=== PATIENT | female | born 1990 | race African-American/Black ===

== ENCOUNTER 2018-07-16 20:31 | Emergency (ER) | payer OTHER ==
[~2018-07-16] VITALS: Ht 175.3 cm; Wt 124.0 kg
[2018-07-16 21:59] VITALS: BP 148/89
[2018-07-16] MEDS ORDERED: acetaminophen 325mg tablet PO ONE (22:15)
== END 2018-07-16 22:46 | disposition home or self-care (01) ==
LOC: ER 20:32
DX: S00.03XA Contusion of scalp, initial encounter (principal); Z88.1 Allergy status to other antibiotic agents; Z79.899 Other long term (current) drug therapy; W01.198A Fall on same level from slipping, tripping and stumbling with subsequent striking against other object, initial encounter; Y93.E1 Activity, personal bathing and showering; Y92.89 Other specified places as the place of occurrence of the external cause; Y99.8 Other external cause status
CPT/HCPCS: 99284